=== PATIENT | male | born 2000 | race African-American/Black ===

== ENCOUNTER 2024-07-13 | Emergency (ER) | payer SELFPAY ==
[2024-07-13] MEDS ORDERED: Dexamethasone 0.1% OPTH SOLN R EAR SCH (00:30)
[2024-07-13] MEDS ORDERED: Ciprofloxacin 0.3% Ophth Soln 2.5 ml Bottle R EAR SCH (00:30)
[2024-07-13] MEDS ORDERED: Dexamethasone 10 MG/ML VIAL ONE (00:37)
== END 2024-07-13 00:43 | disposition home or self-care (01) ==
LOC: ERS
DX: H65.91 Unspecified nonsuppurative otitis media, right ear (principal); H60.91 Unspecified otitis externa, right ear
CPT/HCPCS: 99282; J1100